=== PATIENT | female | born 1995 | race Caucasian/White ===

== ENCOUNTER → 2019-04-13 | Day surgery (SDC) | payer OTHER ==
[2019-04-11 13:42] VITALS: BMI 26.4
[~2019-04-13] MED LIST: KETAMINE HCL 500 MG/10 ML VIAL ONE
--- NOTE | 2019-04-13 07:11 | HP ---
CHIEF COMPLAINT: Bipolar disorder with psychiatric features; somatic delusions PCP: Dr. Mikayla Ron, [facility] Primary Psychiatrist: Dr. Melissa Jorge, [facility] HISTORY OF PRESENT ILLNESS: 24 year-old female with a PMH significant for bipolar disorder with psychiatric features. Patient first had jECT in 2014. She presents today with for ECT. 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 Smoking: no Alcohol: no Drugs: no Allergies bupropion [From Wellbutrin] Allergy (Intermediate, Verified 04/11/19 13:18) Rash ziprasidone [From Geodon] Allergy (Intermediate, Verified 04/11/19 13:20) Rash HOME MEDICATIONS: Home Medications Medication Instructions Recorded Amantadine HCl [Amantadine] 100 mg PO TID 04/11/19 Clozapine [Clozaril] 75 mg PO HS 04/11/19 Duloxetine HCl [Cymbalta] 30 mg PO BID 04/11/19 Pimozide [Orap] 0.5 mg PO DAILY 04/11/19 Pimozide [Orap] 2 mg PO HS 04/11/19 clonazePAM [Klonopin -] 0.5 mg PO BID 04/11/19 REVIEW OF SYSTEMS CONSTITUTIONAL: Absent: fever, chills, diaphoresis, generalized weakness, malaise, loss of appetite, weight change HEENT: Absent: rhinorrhea, nasal congestion, throat pain, throat swelling, difficulty swallowing, mouth swelling, ear pain, eye pain, visual changes CARDIOVASCULAR: Absent: chest pain, syncope, palpitations, irregular heart rate, lightheadedness , peripheral edema RESPIRATORY: Absent: cough, shortness of breath, dyspnea with exertion, orthopnea, wheezing, stridor, hemoptysis GASTROINTESTINAL: Absent: abdominal pain, abdominal distension, nausea, vomiting, diarrhea, constipation, melena, hematochezia GENITOURINARY: Absent: dysuria, frequency, urgency, hesitancy, hematuria, flank pain, genital pain MUSCULOSKELETAL: Absent: myalgia, arthralgia, joint swelling, back pain, neck pain SKIN: Absent: rash, itching, pallor HEMATOLOGIC/IMMUNOLOGIC: Absent: easy bleeding, easy bruising, lymphadenopathy, frequent infections ENDOCRINE: Absent: unexplained weight gain, unexplained weight loss, heat intolerance, cold intolerance NEUROLOGIC: Absent: headache, focal weakness or paresthesias, dizziness, unsteady gait, seizure, mental status changes, bladder or bowel incontinence PHYSICAL EXAMINATION Vital Signs Temperature 98.0 F 04/13/19 07:11 Pulse Rate 77 04/13/19 07:11 Respiratory Rate 18 04/13/19 07:11 Blood Pressure 113/74 04/13/19 07:11 O2 Sat by Pulse Oximetry (%) 100 04/13/19 07:11 GENERAL: Awake, alert, and fully oriented, in no acute distress. HEAD: Normal with no signs of trauma. EYES: Pupils equal, round and reactive to light, sclera anicteric, conjunctiva clear. LUNGS: Breath sounds equal, clear to auscultation bilaterally. No wheezes, and no crackles. No accessory muscle use. HEART: Regular rate and rhythm, normal S1 and S2 ABDOMEN: Soft, nontender, not distended MUSCULOSKELETAL: Normal range of motion at all joints. No bony deformities or tenderness. No CVA tenderness. UPPER EXTREMITIES: 2+ pulses, warm, well-perfused. No cyanosis. No clubbing. No peripheral edema. LOWER EXTREMITIES: 2+ pulses, warm, well-perfused. No calf tenderness. No peripheral edema. NEUROLOGICAL: Cranial nerves II-XII intact. Normal speech. ASSESSMENT/PLAN: 24 year-old female with a PMH significant for bipolar disorder with psychiatric features. She presents today with for ECT. Cardiac --no cardiac history --Revised Cardiac Risk Index for Pre-Operative Risk: 0 points, 0.4% risk of major cardiac event Pulmonary --no pulmonary history Neurological --no neurological or neurosurgical history; no history of trauma Anesthesia --no reported problems with anesthesia ECT is a low risk procedure. The relative benefits of the planned procedure outweigh the relative risks for this patient at this time. Visit type - Emergency Visit Emergency Visit: No - New Patient This patient is new to me today: Yes Date on this admission: 04/13/19 - Critical Care Critical Care patient: No
[2019-04-13 10:09] VITALS: TEMP 98.8
[2019-04-13 10:33] VITALS: BP 117/66; PULSE 88
== END | disposition home or self-care (01) ==
LOC: FECT 06:10
PROVIDERS: ATTEND Psychiatry & Neurology Psychiatry
PROC: GZB4ZZZ Other Electroconvulsive Therapy (ICD-10-PCS; principal; 2019-04-13 08:15)
DX: F32.9 Major depressive disorder, single episode, unspecified (principal)
CPT/HCPCS: 81025; 90870; 94760

== ENCOUNTER 2019-04-14 05:45 | Day surgery (SDC) | payer OTHER ==
[2019-04-14 06:29] VITALS: TEMP 98.1; BMI 25.7
[2019-04-14] MEDS ORDERED: KETAMINE HCL 500 MG/10 ML VIAL ONE (06:56)
[2019-04-14] MEDS ORDERED: LACTATED RINGERS SOLUTION 1,000 ML IV SCH (07:00)
[2019-04-14 08:10] VITALS: BP 121/73; PULSE 91
== END 2019-04-14 08:15 | disposition home or self-care (01) ==
LOC: FECT 05:45
PROVIDERS: ATTEND Psychiatry & Neurology Psychiatry
PROC: GZB4ZZZ Other Electroconvulsive Therapy (ICD-10-PCS; principal; 2019-04-14 07:30)
DX: F33.3 Major depressive disorder, recurrent, severe with psychotic symptoms (principal)
CPT/HCPCS: 90870; 94760

== ENCOUNTER → 2019-04-17 | Day surgery (SDC) | payer OTHER | LOC: FECT 05:48 ==

== ENCOUNTER 2019-04-19 05:37 | Day surgery (SDC) | payer OTHER ==
[2019-04-19 06:32] VITALS: TEMP 98.1; BMI 25.7
[2019-04-19] MEDS ORDERED: KETAMINE HCL 500 MG/10 ML VIAL ONE (07:04)
[2019-04-19] MEDS ORDERED: ONDANSETRON 4 MG/2 ML VIAL IVPUSH PRN (07:43)
[2019-04-19] MEDS ORDERED: ACETAMINOPHEN 325 MG TABLET (FP) PO PRN (07:43)
[2019-04-26] MEDS ORDERED: KETAMINE HCL 500 MG/10 ML VIAL ONE (07:01)
[2019-04-28] MEDS ORDERED: KETAMINE HCL 500 MG/10 ML VIAL ONE (06:58)
[2019-04-28 09:12] VITALS: BP 115/79; PULSE 81
== END 2019-04-19 09:10 | disposition home or self-care (01) ==
LOC: FECT 05:37
PROVIDERS: ATTEND Psychiatry & Neurology Psychiatry
PROC: GZB4ZZZ Other Electroconvulsive Therapy (ICD-10-PCS; principal; 2019-04-19 07:00)
DX: F32.9 Major depressive disorder, single episode, unspecified (principal)
CPT/HCPCS: 81025; 90870; 94760

== ENCOUNTER 2019-04-24 05:43 | Day surgery (SDC) | payer OTHER ==
[2019-04-18 15:49] VITALS: BMI 25.7
[2019-04-24 07:05] VITALS: TEMP 98.4
[2019-04-24] MEDS ORDERED: LACTATED RINGERS SOLUTION 1,000 ML IV SCH (07:15)
[2019-04-24] MEDS ORDERED: KETAMINE HCL 500 MG/10 ML VIAL ONE (07:24)
[2019-04-24 08:56] VITALS: BP 110/77; PULSE 72
== END 2019-04-24 09:00 | disposition home or self-care (01) ==
LOC: FECT 05:43
PROVIDERS: ATTEND Psychiatry & Neurology Psychiatry
PROC: GZB4ZZZ Other Electroconvulsive Therapy (ICD-10-PCS; principal; 2019-04-24 07:15)
DX: F32.9 Major depressive disorder, single episode, unspecified (principal)
CPT/HCPCS: 81025; 90870; 94760

== ENCOUNTER 2019-04-26 05:38 | Day surgery (SDC) | payer OTHER ==
[2019-04-18 15:55] VITALS: BMI 25.7
[2019-04-26 06:46] VITALS: TEMP 98
[2019-04-26] MEDS ORDERED: ONDANSETRON 4 MG/2 ML VIAL IVPUSH PRN (07:06)
[2019-04-26] MEDS ORDERED: oxyCODONE HCL 5 MG TABLET PO PRN (07:06)
[2019-04-26 08:24] VITALS: BP 107/61; PULSE 96
== END 2019-04-26 08:25 | disposition home or self-care (01) ==
LOC: FECT 05:38
PROVIDERS: ATTEND Psychiatry & Neurology Psychiatry
PROC: GZB4ZZZ Other Electroconvulsive Therapy (ICD-10-PCS; principal; 2019-04-26 07:00)
DX: F32.9 Major depressive disorder, single episode, unspecified (principal)
CPT/HCPCS: 90870; 94760

== ENCOUNTER 2019-04-28 05:39 | Day surgery (SDC) | payer OTHER ==
[2019-04-18 16:07] VITALS: BMI 25.7
[2019-04-28 08:18] VITALS: TEMP 97.7
[2019-04-28 08:29] VITALS: BP 115/70; PULSE 89
[2019-04-28] MEDS ORDERED: ONDANSETRON 4 MG/2 ML VIAL IVPUSH PRN (09:49)
[2019-04-28] MEDS ORDERED: LACTATED RINGERS SOLUTION 1,000 ML IV SCH (10:00)
== END 2019-04-28 08:30 | disposition home or self-care (01) ==
LOC: FECT 05:39
PROVIDERS: ATTEND Psychiatry & Neurology Psychiatry
PROC: GZB4ZZZ Other Electroconvulsive Therapy (ICD-10-PCS; principal; 2019-04-28 07:00)
DX: F32.9 Major depressive disorder, single episode, unspecified (principal)
CPT/HCPCS: 81025; 90870; 94760

== ENCOUNTER 2019-05-01 05:39 | Day surgery (SDC) | payer OTHER ==
[2019-05-01 06:29] VITALS: BMI 25.7
[2019-05-01 06:34] VITALS: TEMP 98
[2019-05-01] MEDS ORDERED: KETAMINE HCL 500 MG/10 ML VIAL ONE (06:53)
[2019-05-01 08:19] VITALS: BP 122/70; PULSE 89
== END 2019-05-01 08:25 | disposition home or self-care (01) ==
LOC: FECT 05:39
PROVIDERS: ATTEND Psychiatry & Neurology Psychiatry
PROC: GZB4ZZZ Other Electroconvulsive Therapy (ICD-10-PCS; principal; 2019-05-01 07:15)
DX: F33.2 Major depressive disorder, recurrent severe without psychotic features (principal)
CPT/HCPCS: 90870; 94760

== ENCOUNTER 2019-05-03 06:53 | Day surgery (SDC) | payer OTHER ==
[2019-04-27 11:15] VITALS: BMI 25.5
[2019-05-03 08:56] VITALS: TEMP 97.6
[2019-05-03 09:04] VITALS: BP 104/70; PULSE 108
[2019-05-03] MEDS ORDERED: PROMETHAZINE HCL 25 MG/1 ML VIAL IVPUSH PRN (09:43)
[2019-05-03] MEDS ORDERED: ACETAMINOPHEN 325 MG TABLET (FP) PO PRN (09:43)
[2019-05-03] MEDS ORDERED: LACTATED RINGERS SOLUTION 1,000 ML IV SCH (09:45)
== END 2019-05-03 09:05 | disposition home or self-care (01) ==
LOC: FECT 06:53
PROVIDERS: ATTEND Psychiatry & Neurology Psychiatry
PROC: GZB4ZZZ Other Electroconvulsive Therapy (ICD-10-PCS; principal; 2019-05-03 07:00)
DX: F32.9 Major depressive disorder, single episode, unspecified (principal)
CPT/HCPCS: 84703; 90870; 94760

== ENCOUNTER 2019-05-05 05:39 | Day surgery (SDC) | payer OTHER ==
[2019-05-05 06:35] VITALS: BMI 25.5
[2019-05-05] MEDS ORDERED: ONDANSETRON 4 MG/2 ML VIAL IVPUSH PRN (06:48)
[2019-05-05] MEDS ORDERED: LACTATED RINGERS SOLUTION 1,000 ML IV SCH (07:00)
[2019-05-05 07:46] VITALS: TEMP 98.1
[2019-05-05 08:22] VITALS: BP 101/64; PULSE 84
== END 2019-05-05 08:23 | disposition home or self-care (01) ==
LOC: FECT 05:39
PROVIDERS: ATTEND Psychiatry & Neurology Psychiatry
PROC: GZB4ZZZ Other Electroconvulsive Therapy (ICD-10-PCS; principal; 2019-05-05 07:00)
DX: F32.9 Major depressive disorder, single episode, unspecified (principal)
CPT/HCPCS: 90870; 94760

== ENCOUNTER 2019-05-08 05:40 | Day surgery (SDC) | payer OTHER ==
[2019-04-27 15:03] VITALS: BMI 25.5
[2019-05-08] MEDS ORDERED: LACTATED RINGERS SOLUTION 1,000 ML IV SCH (07:00)
[2019-05-08 07:50] VITALS: TEMP 98.1
[2019-05-08 08:13] VITALS: BP 98/61; PULSE 89
== END 2019-05-08 08:15 | disposition home or self-care (01) ==
LOC: FECT 05:40
PROVIDERS: ATTEND Psychiatry & Neurology Psychiatry
PROC: GZB4ZZZ Other Electroconvulsive Therapy (ICD-10-PCS; principal; 2019-05-08 07:00)
DX: F33.2 Major depressive disorder, recurrent severe without psychotic features (principal)
CPT/HCPCS: 81025; 90870; 94760

== ENCOUNTER 2019-05-10 05:36 | Day surgery (SDC) | payer OTHER ==
[2019-05-05 09:12] VITALS: BMI 25.5
--- NOTE | 2019-05-10 08:15 | HP ---
CHIEF COMPLAINT: Bipolar disorder with psychiatric features; somatic delusions PCP: Dr. Mikayla Ron, [facility] Primary Psychiatrist: Dr. Melissa Jorge, [facility] HISTORY OF PRESENT ILLNESS: 24 year-old female with a PMH significant for bipolar disorder with psychiatric features. Patient first had ECT in 2014. She presents today with for ECT. 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 Smoking: no Alcohol: no Drugs: no Allergies bupropion [From Wellbutrin] Allergy (Intermediate, Verified 04/28/19 13:00) Rash fluoxetine [From Prozac] Allergy (Intermediate, Verified 04/28/19 13:00) Rash ziprasidone [From Geodon] Allergy (Intermediate, Verified 04/28/19 13:00) Rash HOME MEDICATIONS: Home Medications Medication Instructions Recorded Amantadine HCl [Amantadine] 100 mg PO TID 04/11/19 Pimozide [Orap] 0.5 mg PO DAILY 04/11/19 clonazePAM [Klonopin -] 0.5 mg PO BID 04/11/19 Clozapine 225 mg PO HS 04/26/19 Duloxetine HCl [Cymbalta] 30 mg PO HS 04/26/19 Vortioxetine Hydrobromide 5 mg PO HS 05/08/19 [Trintellix] Pimozide 2 mg PO HS 05/10/19 REVIEW OF SYSTEMS CONSTITUTIONAL: Absent: fever, chills, diaphoresis, generalized weakness, malaise, loss of appetite, weight change HEENT: Absent: rhinorrhea, nasal congestion, throat pain, throat swelling, difficulty swallowing, mouth swelling, ear pain, eye pain, visual changes CARDIOVASCULAR: Absent: chest pain, syncope, palpitations, irregular heart rate, lightheadedness , peripheral edema RESPIRATORY: Absent: cough, shortness of breath, dyspnea with exertion, orthopnea, wheezing, stridor, hemoptysis GASTROINTESTINAL: Absent: abdominal pain, abdominal distension, nausea, vomiting, diarrhea, constipation, melena, hematochezia GENITOURINARY: Absent: dysuria, frequency, urgency, hesitancy, hematuria, flank pain, genital pain MUSCULOSKELETAL: Absent: myalgia, arthralgia, joint swelling, back pain, neck pain SKIN: Absent: rash, itching, pallor HEMATOLOGIC/IMMUNOLOGIC: Absent: easy bleeding, easy bruising, lymphadenopathy, frequent infections ENDOCRINE: Absent: unexplained weight gain, unexplained weight loss, heat intolerance, cold intolerance NEUROLOGIC: Absent: headache, focal weakness or paresthesias, dizziness, unsteady gait, seizure, mental status changes, bladder or bowel incontinence PHYSICAL EXAMINATION Vital Signs - 24 hr 05/10/19 06:35 Temperature 98.4 F Pulse Rate 86 Respiratory 18 Rate Blood Pressure 101/55 L O2 Sat by Pulse 99 Oximetry (%) GENERAL: Awake, alert, and fully oriented, in no acute distress. HEAD: Normal with no signs of trauma. EYES: Pupils equal, round and reactive to light, sclera anicteric, conjunctiva clear. LUNGS: Breath sounds equal, clear to auscultation bilaterally. No wheezes, and no crackles. No accessory muscle use. HEART: Regular rate and rhythm, normal S1 and S2 ABDOMEN: Soft, nontender, not distended MUSCULOSKELETAL: Normal range of motion at all joints. No bony deformities or tenderness. No CVA tenderness. UPPER EXTREMITIES: 2+ pulses, warm, well-perfused. No cyanosis. No clubbing. No peripheral edema. LOWER EXTREMITIES: 2+ pulses, warm, well-perfused. No calf tenderness. No peripheral edema. NEUROLOGICAL: Cranial nerves II-XII intact. Normal speech. ASSESSMENT/PLAN: 24 year-old female with a PMH significant for bipolar disorder with psychiatric features. Presents today with for ECT. Cardiac --no cardiac history --Revised Cardiac Risk Index for Pre-Operative Risk: 0 points, 0.4% risk of major cardiac event Pulmonary --no pulmonary history Neurological --no neurological or neurosurgical history; no history of trauma Anesthesia --no reported problems with anesthesia ECT is a low risk procedure. The relative benefits of the planned procedure outweigh the relative risks for this patient at this time. Visit type - Emergency Visit Emergency Visit: No - New Patient This patient is new to me today: Yes Date on this admission: 05/10/19 - Critical Care Critical Care patient: No
[2019-05-10 08:20] VITALS: TEMP 97.7
[2019-05-10 09:05] VITALS: BP 102/62; PULSE 89
== END 2019-05-10 08:30 | disposition home or self-care (01) ==
LOC: FECT 05:36
PROVIDERS: ATTEND Psychiatry & Neurology Psychiatry
PROC: GZB4ZZZ Other Electroconvulsive Therapy (ICD-10-PCS; principal; 2019-05-10 07:00)
DX: F32.9 Major depressive disorder, single episode, unspecified (principal)
CPT/HCPCS: 90870; 94760

== ENCOUNTER 2019-05-15 06:41 | Day surgery (SDC) | payer OTHER ==
[2019-04-28 13:03] VITALS: BMI 25.7
[2019-05-15] MEDS ORDERED: LACTATED RINGERS SOLUTION 1,000 ML IV SCH (08:00)
[2019-05-15 09:01] VITALS: TEMP 97.7
[2019-05-15 09:03] VITALS: BP 105/69; PULSE 79
== END 2019-05-15 08:50 | disposition home or self-care (01) ==
LOC: FECT 06:41
PROVIDERS: ATTEND Psychiatry & Neurology Psychiatry
PROC: GZB4ZZZ Other Electroconvulsive Therapy (ICD-10-PCS; principal; 2019-05-15 07:45)
DX: F33.2 Major depressive disorder, recurrent severe without psychotic features (principal)
CPT/HCPCS: 81025; 90870; 94760

== ENCOUNTER 2019-05-18 05:40 | Day surgery (SDC) | payer OTHER ==
[2019-05-16 11:48] VITALS: BMI 25.7
[2019-05-18 06:56] VITALS: TEMP 98.1
[2019-05-18] MEDS ORDERED: LACTATED RINGERS SOLUTION 1,000 ML IV SCH (07:30)
[2019-05-18 08:36] VITALS: BP 105/65; PULSE 88
== END 2019-05-18 08:15 | disposition home or self-care (01) ==
LOC: FECT 05:40
PROVIDERS: ATTEND Psychiatry & Neurology Psychiatry
PROC: GZB4ZZZ Other Electroconvulsive Therapy (ICD-10-PCS; principal; 2019-05-18 07:15)
DX: F32.9 Major depressive disorder, single episode, unspecified (principal)
CPT/HCPCS: 90870; 94760

== ENCOUNTER 2019-05-22 05:46 | Day surgery (SDC) | payer OTHER ==
[2019-05-22 07:04] VITALS: BMI 25.7
[2019-05-22 08:46] VITALS: TEMP 97.8
[2019-05-22 09:17] VITALS: BP 102/72; PULSE 86
== END 2019-05-22 09:00 | disposition home or self-care (01) ==
LOC: FECT 05:46
PROVIDERS: ATTEND Psychiatry & Neurology Psychiatry
PROC: GZB4ZZZ Other Electroconvulsive Therapy (ICD-10-PCS; principal; 2019-05-22 07:30)
DX: F33.2 Major depressive disorder, recurrent severe without psychotic features (principal)
CPT/HCPCS: 81025; 90870; 94760

== ENCOUNTER 2019-05-25 05:46 | Day surgery (SDC) | payer OTHER | END 2019-05-25 08:20 | disposition home or self-care (01) | LOC: FECT 05:46 ==

== ENCOUNTER 2019-06-09 08:17 | Day surgery (SDC) | payer OTHER ==
[2019-06-09 08:45] VITALS: TEMP 97.8; BMI 24.7
[2019-06-09 10:55] VITALS: BP 101/70
[2019-06-09 12:24] VITALS: PULSE 68
--- NOTE | 2019-06-13 10:22 | HP ---
CHIEF COMPLAINT: Bipolar disorder with psychotic features; somatic delusions PCP: Dr. Mikayla Ron, [facility] Primary Psychiatrist: Dr. Melissa Jorge, [facility] HISTORY OF PRESENT ILLNESS: 24 year-old female with a PMH significant for bipolar disorder with psychotic features. Patient first had ECT in 2014. She presents today with for ECT. 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: no Alcohol: no Drugs: no Family history: non-contributory HOME MEDICATIONS: Home Medications Medication Instructions Recorded Amantadine HCl [Amantadine] 100 mg PO TID 04/11/19 Pimozide [Orap] 0.5 mg PO DAILY 04/11/19 clonazePAM [Klonopin -] 0.5 mg PO BID 04/11/19 Clozapine 225 mg PO HS 04/26/19 Pimozide [Orap] 1.75 mg PO HS 05/15/19 Vortioxetine Hydrobromide 10 mg PO HS 05/22/19 [Trintellix] Nitrofurantoin Monohyd/M-Cryst 100 mg PO BID 06/09/19 [Macrobid -] Duloxetine HCl [Cymbalta] 20 mg PO HS 06/12/19 REVIEW OF SYSTEMS CONSTITUTIONAL: Absent: fever, chills, diaphoresis, generalized weakness, malaise, loss of appetite, weight change HEENT: Absent: rhinorrhea, nasal congestion, throat pain, throat swelling, difficulty swallowing, mouth swelling, ear pain, eye pain, visual changes CARDIOVASCULAR: Absent: chest pain, syncope, palpitations, irregular heart rate, lightheadedness , peripheral edema RESPIRATORY: Absent: cough, shortness of breath, dyspnea with exertion, orthopnea, wheezing, stridor, hemoptysis GASTROINTESTINAL: Absent: abdominal pain, abdominal distension, nausea, vomiting, diarrhea, constipation, melena, hematochezia GENITOURINARY: Absent: dysuria, frequency, urgency, hesitancy, hematuria, flank pain, genital pain MUSCULOSKELETAL: Absent: myalgia, arthralgia, joint swelling, back pain, neck pain SKIN: Absent: rash, itching, pallor HEMATOLOGIC/IMMUNOLOGIC: Absent: easy bleeding, easy bruising, lymphadenopathy, frequent infections ENDOCRINE: Absent: unexplained weight gain, unexplained weight loss, heat intolerance, cold intolerance NEUROLOGIC: Absent: headache, focal weakness or paresthesias, dizziness, unsteady gait, seizure, mental status changes, bladder or bowel incontinence PHYSICAL EXAMINATION Vital Signs Temperature 97.8 F 06/09/19 10:15 Pulse Rate 68 06/09/19 11:00 Respiratory Rate 20 06/09/19 11:00 Blood Pressure 101/70 06/09/19 11:00 O2 Sat by Pulse Oximetry (%) 98 06/09/19 10:15 GENERAL: Awake, alert, and fully oriented, in no acute distress. HEAD: Normal with no signs of trauma. EYES: Pupils equal, round and reactive to light, sclera anicteric, conjunctiva clear. LUNGS: Breath sounds equal, clear to auscultation bilaterally. No wheezes, and no crackles. No accessory muscle use. HEART: Regular rate and rhythm, normal S1 and S2 ABDOMEN: Soft, nontender, not distended MUSCULOSKELETAL: Normal range of motion at all joints. No bony deformities or tenderness. No CVA tenderness. UPPER EXTREMITIES: 2+ pulses, warm, well-perfused. No cyanosis. No clubbing. No peripheral edema. LOWER EXTREMITIES: 2+ pulses, warm, well-perfused. No calf tenderness. No peripheral edema. NEUROLOGICAL: Cranial nerves II-XII intact. Normal speech. ASSESSMENT/PLAN: 24 year-old female with a PMH significant for bipolar disorder with psychotic features. Presents today with for ECT. Cardiac --no cardiac history --Revised Cardiac Risk Index for Pre-Operative Risk: 0 points, 0.4% risk of major cardiac event Pulmonary --no pulmonary history Neurological --no neurological or neurosurgical history; no history of trauma Anesthesia --no reported problems with anesthesia ECT is a low risk procedure. The relative benefits of the planned procedure outweigh the relative risks for this patient at this time. Visit type - Emergency Visit Emergency Visit: No - New Patient This patient is new to me today: Yes Date on this admission: 06/13/19 - Critical Care Critical Care patient: No
== END 2019-06-09 11:00 | disposition home or self-care (01) ==
LOC: FECT 08:17
PROVIDERS: ATTEND Psychiatry & Neurology Psychiatry
PROC: GZB4ZZZ Other Electroconvulsive Therapy (ICD-10-PCS; principal; 2019-06-09 07:30)
DX: F25.9 Schizoaffective disorder, unspecified (principal)
CPT/HCPCS: 84703; 90870; 94760

== ENCOUNTER 2019-06-12 05:53 | Day surgery (SDC) | payer OTHER ==
[2019-06-09 17:02] VITALS: BMI 24.7
[2019-06-12 08:23] VITALS: TEMP 98.6
[2019-06-12 08:30] VITALS: BP 101/61; PULSE 92
== END 2019-06-12 08:35 | disposition home or self-care (01) ==
LOC: FECT 05:53
PROVIDERS: ATTEND Psychiatry & Neurology Psychiatry
PROC: GZB4ZZZ Other Electroconvulsive Therapy (ICD-10-PCS; principal; 2019-06-12 08:00)
DX: F25.1 Schizoaffective disorder, depressive type (principal)
CPT/HCPCS: 90870; 94760

== ENCOUNTER 2019-06-15 05:50 | Day surgery (SDC) | payer OTHER ==
[2019-06-15] MEDS ORDERED: ONDANSETRON 4 MG/2 ML VIAL IVPUSH PRN (07:28)
[2019-06-15] MEDS ORDERED: oxyCODONE HCL 5 MG TABLET PO PRN (07:28)
[2019-06-15 08:32] VITALS: TEMP 98.4
[2019-06-15 08:36] VITALS: BP 97/56; PULSE 90
== END 2019-06-15 08:38 | disposition home or self-care (01) ==
LOC: FECT 05:50
PROVIDERS: ATTEND Psychiatry & Neurology Psychiatry
PROC: GZB4ZZZ Other Electroconvulsive Therapy (ICD-10-PCS; principal; 2019-06-15 07:30)
DX: F25.1 Schizoaffective disorder, depressive type (principal)
CPT/HCPCS: 81025; 90870; 94760

== ENCOUNTER 2019-06-23 05:50 | Day surgery (SDC) | payer OTHER ==
[2019-06-15 15:44] VITALS: BMI 26.7
[2019-06-23] MEDS ORDERED: LACTATED RINGERS SOLUTION 1,000 ML IV SCH (09:00)
[2019-06-23 09:18] VITALS: BP 102/62; TEMP 98.4
[2019-06-23 10:16] VITALS: PULSE 70
== END 2019-06-23 09:50 | disposition home or self-care (01) ==
LOC: FECT 05:50
PROVIDERS: ATTEND Psychiatry & Neurology Psychiatry
PROC: GZB4ZZZ Other Electroconvulsive Therapy (ICD-10-PCS; principal; 2019-06-23 07:30)
DX: F25.9 Schizoaffective disorder, unspecified (principal)
CPT/HCPCS: 84703; 90870; 94760

== ENCOUNTER 2019-06-30 05:50 | Day surgery (SDC) | payer OTHER ==
[2019-06-23 12:44] VITALS: BMI 26.7
[2019-06-30] MEDS ORDERED: PROMETHAZINE HCL 25 MG/1 ML VIAL IVPUSH PRN (07:59)
[2019-06-30] MEDS ORDERED: ACETAMINOPHEN 325 MG TABLET (FP) PO PRN (07:59)
[2019-06-30] MEDS ORDERED: LACTATED RINGERS SOLUTION 1,000 ML IV SCH (08:00)
[2019-06-30 09:20] VITALS: TEMP 98
[2019-06-30 09:21] VITALS: BP 102/60; PULSE 68
== END 2019-06-30 09:15 | disposition home or self-care (01) ==
LOC: FECT 05:50
PROVIDERS: ATTEND Psychiatry & Neurology Psychiatry
PROC: GZB4ZZZ Other Electroconvulsive Therapy (ICD-10-PCS; principal; 2019-06-30 08:00)
DX: F32.9 Major depressive disorder, single episode, unspecified (principal)
CPT/HCPCS: 81025; 90870; 94760

== ENCOUNTER 2019-07-07 05:53 | Day surgery (SDC) | payer OTHER ==
[2019-06-30 17:02] VITALS: BMI 26.7
[2019-07-07] MEDS ORDERED: LACTATED RINGERS SOLUTION 1,000 ML IV SCH (07:30)
[2019-07-07 07:46] VITALS: TEMP 98.6
[2019-07-07 08:14] VITALS: BP 105/61; PULSE 89
--- NOTE | 2019-07-10 15:39 | HP ---
CHIEF COMPLAINT: PCP: Primary Psychiatrist: HISTORY OF PRESENT ILLNESS: Recent Events: PAST MEDICAL HISTORY: PAST SURGICAL HISTORY: Social History: Smoking: Alcohol: Drugs: Allergies bupropion [From Wellbutrin] Allergy (Intermediate, Verified 06/30/19 16:58) Rash fluoxetine [From Prozac] Allergy (Intermediate, Verified 06/30/19 16:58) Rash ziprasidone [From Geodon] Allergy (Intermediate, Verified 06/30/19 16:58) Rash HOME MEDICATIONS: Home Medications Medication Instructions Recorded Amantadine HCl [Amantadine] 100 mg PO TID 04/11/19 Pimozide [Orap] 0.5 mg PO DAILY 04/11/19 clonazePAM [Klonopin -] 0.5 mg PO BID 04/11/19 Clozapine 225 mg PO HS 04/26/19 Pimozide [Orap] 1.5 mg PO HS 05/15/19 Vortioxetine Hydrobromide 10 mg PO HS 05/22/19 [Trintellix] Nitrofurantoin Monohyd/M-Cryst 100 mg PO BID PRN 06/09/19 [Macrobid -] Duloxetine HCl [Cymbalta] 20 mg PO Q2D 06/12/19 REVIEW OF SYSTEMS CONSTITUTIONAL: Absent: fever, chills, diaphoresis, generalized weakness, malaise, loss of appetite, weight change HEENT: Absent: rhinorrhea, nasal congestion, throat pain, throat swelling, difficulty swallowing, mouth swelling, ear pain, eye pain, visual changes CARDIOVASCULAR: Absent: chest pain, syncope, palpitations, irregular heart rate, lightheadedness , peripheral edema RESPIRATORY: Absent: cough, shortness of breath, dyspnea with exertion, orthopnea, wheezing, stridor, hemoptysis GASTROINTESTINAL: Absent: abdominal pain, abdominal distension, nausea, vomiting, diarrhea, constipation, melena, hematochezia GENITOURINARY: Absent: dysuria, frequency, urgency, hesitancy, hematuria, flank pain, genital pain MUSCULOSKELETAL: Absent: myalgia, arthralgia, joint swelling, back pain, neck pain SKIN: Absent: rash, itching, pallor HEMATOLOGIC/IMMUNOLOGIC: Absent: easy bleeding, easy bruising, lymphadenopathy, frequent infections ENDOCRINE: Absent: unexplained weight gain, unexplained weight loss, heat intolerance, cold intolerance NEUROLOGIC: Absent: headache, focal weakness or paresthesias, dizziness, unsteady gait, seizure, mental status changes, bladder or bowel incontinence PHYSICAL EXAMINATION GENERAL: Awake, alert, and fully oriented, in no acute distress. HEAD: Normal with no signs of trauma. EYES: Pupils equal, round and reactive to light, sclera anicteric, conjunctiva clear. LUNGS: Breath sounds equal, clear to auscultation bilaterally. No wheezes, and no crackles. No accessory muscle use. HEART: Regular rate and rhythm, normal S1 and S2 ABDOMEN: Soft, nontender, not distended MUSCULOSKELETAL: Normal range of motion at all joints. No bony deformities or tenderness. No CVA tenderness. UPPER EXTREMITIES: 2+ pulses, warm, well-perfused. No cyanosis. No clubbing. No peripheral edema. LOWER EXTREMITIES: 2+ pulses, warm, well-perfused. No calf tenderness. No peripheral edema. NEUROLOGICAL: Cranial nerves II-XII intact. Normal speech. Laboratory Results - last 24 hr 07/07/19 06:17 POC Urine HCG, Qual Negative ASSESSMENT/PLAN: Cardiac --no cardiac history --Revised Cardiac Risk Index for Pre-Operative Risk: 0 points, 0.4% risk of major cardiac event Pulmonary --no pulmonary history Neurological --no neurological or neurosurgical history; no history of trauma Anesthesia --no reported problems with anesthesia ECT is a low risk procedure. The relative benefits of the planned procedure outweigh the relative risks for this patient at this time.
== END 2019-07-07 08:10 | disposition home or self-care (01) ==
LOC: FECT 05:53
PROVIDERS: ATTEND Psychiatry & Neurology Psychiatry
PROC: GZB4ZZZ Other Electroconvulsive Therapy (ICD-10-PCS; principal; 2019-07-07 07:30)
DX: F25.9 Schizoaffective disorder, unspecified (principal)
CPT/HCPCS: 81025; 90870; 94760

== ENCOUNTER 2019-07-14 05:41 | Day surgery (SDC) | payer OTHER ==
[2019-07-14 06:39] VITALS: BMI 26.7
[2019-07-14 08:18] VITALS: TEMP 98.6
[2019-07-14] MEDS ORDERED: ONDANSETRON 4 MG/2 ML VIAL IVPUSH PRN (08:23)
[2019-07-14] MEDS ORDERED: LACTATED RINGERS SOLUTION 1,000 ML IV SCH (08:30)
[2019-07-14 08:37] VITALS: BP 102/62; PULSE 77
--- NOTE | 2019-07-17 17:48 | HP ---
CHIEF COMPLAINT: Bipolar disorder with psychotic features; somatic delusions PCP: Dr. Mikayla Ron, [facility] Primary Psychiatrist: Dr. Melissa Jorge, [facility] HISTORY OF PRESENT ILLNESS: 24 year-old female with a PMH significant for bipolar disorder with psychotic features. Patient first had ECT in 2014. She presents today with for ECT. 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: no Alcohol: no Drugs: no Allergies bupropion [From Wellbutrin] Allergy (Intermediate, Verified 06/30/19 16:58) Rash fluoxetine [From Prozac] Allergy (Intermediate, Verified 06/30/19 16:58) Rash ziprasidone [From Geodon] Allergy (Intermediate, Verified 06/30/19 16:58) Rash HOME MEDICATIONS: Home Medications Medication Instructions Recorded Amantadine HCl [Amantadine] 100 mg PO TID 04/11/19 Pimozide [Orap] 0.5 mg PO DAILY 04/11/19 clonazePAM [Klonopin -] 0.5 mg PO BID 04/11/19 Clozapine 225 mg PO HS 04/26/19 Pimozide [Orap] 1.75 mg PO HS 05/15/19 Vortioxetine Hydrobromide 15 mg PO HS 05/22/19 [Trintellix] Nitrofurantoin Monohyd/M-Cryst 100 mg PO BID PRN 06/09/19 [Macrobid -] Duloxetine HCl [Cymbalta] 20 mg PO Q2D 06/12/19 REVIEW OF SYSTEMS CONSTITUTIONAL: Absent: fever, chills, diaphoresis, generalized weakness, malaise, loss of appetite, weight change HEENT: Absent: rhinorrhea, nasal congestion, throat pain, throat swelling, difficulty swallowing, mouth swelling, ear pain, eye pain, visual changes CARDIOVASCULAR: Absent: chest pain, syncope, palpitations, irregular heart rate, lightheadedness , peripheral edema RESPIRATORY: Absent: cough, shortness of breath, dyspnea with exertion, orthopnea, wheezing, stridor, hemoptysis GASTROINTESTINAL: Absent: abdominal pain, abdominal distension, nausea, vomiting, diarrhea, constipation, melena, hematochezia GENITOURINARY: Absent: dysuria, frequency, urgency, hesitancy, hematuria, flank pain, genital pain MUSCULOSKELETAL: Absent: myalgia, arthralgia, joint swelling, back pain, neck pain SKIN: Absent: rash, itching, pallor HEMATOLOGIC/IMMUNOLOGIC: Absent: easy bleeding, easy bruising, lymphadenopathy, frequent infections ENDOCRINE: Absent: unexplained weight gain, unexplained weight loss, heat intolerance, cold intolerance NEUROLOGIC: Absent: headache, focal weakness or paresthesias, dizziness, unsteady gait, seizure, mental status changes, bladder or bowel incontinence PHYSICAL EXAMINATION Vital Signs Temperature 98.6 F 07/14/19 08:40 Pulse Rate 77 07/14/19 08:40 Respiratory Rate 18 07/14/19 08:40 Blood Pressure 102/62 07/14/19 08:40 O2 Sat by Pulse Oximetry (%) 99 07/14/19 08:35 GENERAL: Awake, alert, and fully oriented, in no acute distress. HEAD: Normal with no signs of trauma. EYES: Pupils equal, round and reactive to light, sclera anicteric, conjunctiva clear. LUNGS: Breath sounds equal, clear to auscultation bilaterally. No wheezes, and no crackles. No accessory muscle use. HEART: Regular rate and rhythm, normal S1 and S2 ABDOMEN: Soft, nontender, not distended MUSCULOSKELETAL: Normal range of motion at all joints. No bony deformities or tenderness. No CVA tenderness. UPPER EXTREMITIES: 2+ pulses, warm, well-perfused. No cyanosis. No clubbing. No peripheral edema. LOWER EXTREMITIES: 2+ pulses, warm, well-perfused. No calf tenderness. No peripheral edema. NEUROLOGICAL: Cranial nerves II-XII intact. Normal speech. ASSESSMENT/PLAN: 24 year-old female with a PMH significant for bipolar disorder with psychotic features. Presents today for ECT. Cardiac --no cardiac history --Revised Cardiac Risk Index for Pre-Operative Risk: 0 points, 0.4% risk of major cardiac event Pulmonary --no pulmonary history Neurological --no neurological or neurosurgical history; no history of trauma Anesthesia --no reported problems with anesthesia ECT is a low risk procedure. The relative benefits of the planned procedure outweigh the relative risks for this patient at this time. Visit type - Emergency Visit Emergency Visit: No - New Patient This patient is new to me today: Yes Date on this admission: 07/17/19 - Critical Care Critical Care patient: No
== END 2019-07-14 08:40 | disposition home or self-care (01) ==
LOC: FECT 05:41
PROVIDERS: ATTEND Psychiatry & Neurology Psychiatry
PROC: GZB4ZZZ Other Electroconvulsive Therapy (ICD-10-PCS; 2019-07-14)
PROC: GZB4ZZZ Other Electroconvulsive Therapy (ICD-10-PCS; principal; 2019-07-14 07:30)
DX: F32.9 Major depressive disorder, single episode, unspecified (principal); F25.9 Schizoaffective disorder, unspecified
CPT/HCPCS: 81025; 90870; 94760

== ENCOUNTER 2019-07-21 05:39 | Day surgery (SDC) | payer OTHER ==
[2019-07-21 06:37] VITALS: BMI 26.5
[2019-07-21 08:40] VITALS: BP 101/74; PULSE 78; TEMP 98
== END 2019-07-21 08:25 | disposition home or self-care (01) ==
LOC: FECT 05:39
PROVIDERS: ATTEND Psychiatry & Neurology Psychiatry
PROC: GZB4ZZZ Other Electroconvulsive Therapy (ICD-10-PCS; principal; 2019-07-21 07:00)
DX: F32.9 Major depressive disorder, single episode, unspecified (principal)
CPT/HCPCS: 81025; 90870; 94760

== ENCOUNTER 2019-07-28 05:53 | Day surgery (SDC) | payer OTHER ==
[2019-07-28 06:41] VITALS: TEMP 98; BMI 26.5
[2019-07-28] MEDS ORDERED: LACTATED RINGERS SOLUTION 1,000 ML IV SCH (07:45)
[2019-07-28 08:29] VITALS: BP 100/61; PULSE 89
== END 2019-07-28 08:30 | disposition home or self-care (01) ==
LOC: FECT 05:53
PROVIDERS: ATTEND Psychiatry & Neurology Psychiatry
PROC: GZB4ZZZ Other Electroconvulsive Therapy (ICD-10-PCS; principal; 2019-07-28 07:30)
DX: F25.9 Schizoaffective disorder, unspecified (principal)
CPT/HCPCS: 81025; 90870; 94760

== ENCOUNTER 2019-08-18 05:42 | Day surgery (SDC) | payer OTHER ==
--- NOTE | 2019-08-18 07:20 | HP ---
CHIEF COMPLAINT: here for a scheduled ECT PCP: Dr. Mikayla Ron, [facility] Primary Psychiatrist: Dr. Melissa Jorge, [facility] HISTORY OF PRESENT ILLNESS: Patient is a 24 year-old female with a PMHx significant for bipolar disorder with psychotic features. Patient first had ECT in 2014. She presents today for ECT. 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 Smoking: no Alcohol: no Drugs: no Allergies bupropion [From Wellbutrin] Allergy (Intermediate, Verified 06/30/19 16:58) Rash fluoxetine [From Prozac] Allergy (Intermediate, Verified 06/30/19 16:58) Rash ziprasidone [From Geodon] Allergy (Intermediate, Verified 06/30/19 16:58) Rash HOME MEDICATIONS: Home Medications Medication Instructions Recorded Amantadine HCl [Amantadine] 100 mg PO TID 04/11/19 Pimozide [Orap] 0.5 mg PO DAILY 04/11/19 clonazePAM [Klonopin -] 0.5 mg PO BID 04/11/19 Clozapine 150 mg PO HS 04/26/19 Pimozide [Orap] 1.75 mg PO HS 05/15/19 Vortioxetine Hydrobromide 20 mg PO HS 05/22/19 [Trintellix] Nitrofurantoin Monohyd/M-Cryst 100 mg PO BID PRN 06/09/19 [Macrobid -] Duloxetine HCl [Cymbalta] 20 mg PO Q2D 06/12/19 REVIEW OF SYSTEMS CONSTITUTIONAL: Absent: fever, chills, diaphoresis, generalized weakness, malaise, loss of appetite, weight change HEENT: Absent: rhinorrhea, nasal congestion, throat pain, throat swelling, difficulty swallowing, mouth swelling, ear pain, eye pain, visual changes CARDIOVASCULAR: Absent: chest pain, syncope, palpitations, irregular heart rate, lightheadedness , peripheral edema RESPIRATORY: Absent: cough, shortness of breath, dyspnea with exertion, orthopnea, wheezing, stridor, hemoptysis GASTROINTESTINAL: Absent: abdominal pain, abdominal distension, nausea, vomiting, diarrhea, constipation, melena, hematochezia GENITOURINARY: Absent: dysuria, frequency, urgency, hesitancy, hematuria, flank pain, genital pain MUSCULOSKELETAL: Absent: myalgia, arthralgia, joint swelling, back pain, neck pain SKIN: Absent: rash, itching, pallor HEMATOLOGIC/IMMUNOLOGIC: Absent: easy bleeding, easy bruising, lymphadenopathy, frequent infections ENDOCRINE: Absent: unexplained weight gain, unexplained weight loss, heat intolerance, cold intolerance NEUROLOGIC: Absent: headache, focal weakness or paresthesias, dizziness, unsteady gait, seizure, mental status changes, bladder or bowel incontinence PHYSICAL EXAMINATION GENERAL: Awake, alert, and fully oriented, in no acute distress. HEAD: Normal with no signs of trauma. EYES: Pupils equal, round and reactive to light, sclera anicteric, conjunctiva clear. LUNGS: Breath sounds equal, clear to auscultation bilaterally. No wheezes, and no crackles. No accessory muscle use. HEART: Regular rate and rhythm ABDOMEN: Soft, nontender, not distended MUSCULOSKELETAL: Normal range of motion at all joints. No bony deformities or tenderness. No CVA tenderness. UPPER EXTREMITIES: No cyanosis. No clubbing. No peripheral edema. LOWER EXTREMITIES: No calf tenderness. No peripheral edema. NEUROLOGICAL: Cranial nerves II-XII intact. Normal speech. ASSESSMENT/PLAN: Cardiac no cardiac history Revised Cardiac Risk Index for Pre-Operative Risk: 0 points, 0.4% risk of major cardiac event Pulmonary no pulmonary history Neurological no neurological or neurosurgical history; no history of trauma GI: Under treatment for HPylori : denies any symptoms Anesthesia no reported problems with anesthesia ECT is a low risk procedure. The relative benefits of the planned procedure outweigh the relative risks for this patient at this time. Visit type - Emergency Visit Emergency Visit: Yes Care time: The patient presented to the Emergency Department on the above date and was hospitalized for further evaluation of their emergent condition. - New Patient This patient is new to me today: Yes Date on this admission: 08/18/19 - Critical Care Critical Care patient: No
[2019-08-18 07:45] VITALS: BMI 26.5
[2019-08-18 09:25] VITALS: TEMP 98.7
[2019-08-18 09:37] VITALS: BP 102/62; PULSE 88
== END 2019-08-18 09:40 | disposition home or self-care (01) ==
LOC: FECT 05:42
PROVIDERS: ATTEND Psychiatry & Neurology Psychiatry
PROC: GZB4ZZZ Other Electroconvulsive Therapy (ICD-10-PCS; principal; 2019-08-18 07:45)
DX: F32.9 Major depressive disorder, single episode, unspecified (principal)
CPT/HCPCS: 81025; 90870; 94760